=== PATIENT | male | born 1990 | race Caucasian/White ===

== ENCOUNTER 2018-11-15 11:55 | Emergency (ER) | payer BC ==
[2018-11-15] MEDS ORDERED: Ondansetron 4 MG/2 ML SDV IVPUSH ONE ×2 (12:12→14:08)
[2018-11-15] MEDS ORDERED: Ketorolac 30 MG/ML SDV IVPUSH ONE (12:12)
[2018-11-15] MEDS ORDERED: Sodium Chloride 0.9% 1,000 ML IV SCH ×3 (12:15→15:30)
[2018-11-15] MEDS ORDERED: Morphine 4 MG/ML Syringe IVPUSH ONE (12:26)
[2018-11-15] MEDS ORDERED: Morphine 2 MG/ML Syringe ONE (12:32)
[2018-11-15] MEDS ORDERED: Morphine 2 MG/ML Syringe IVPUSH STA (12:34)
--- NOTE | 2018-11-15 12:39 | EDM.PDOC ---
<Jeanine Cedillo - Last Filed: 11/15/18 16:19> ED HPI GENERAL MEDICAL PROBLEM - General Chief Complaint: Flank Pain Stated Complaint: FLANK PAIN Time Seen by Provider: 11/15/18 12:11 Source of Information: Reports: Patient History Limitations: Reports: No Limitations - History of Present Illness INITIAL COMMENTS - FREE TEXT/NARRATIVE: 28 y/o male presents to ER with cc right flank pain that radiates around into his stomach. He states he feels nauseated and wants to vomited. He reports the pain started 20 minutes prior to arrival. He reports he was watching TV when he felt a stabbing pain near is right kidney. He attempted to reposition and get comfortable but the pain is only getting worse. He denies fever, reports having new onset of chills. He states he is normally healthy and doesn' t take any medications. His PCP is T[facility] Justice. He is accompanied by his girlfriend. Onset: Today, Sudden Onset Date: 11/15/18 Onset Time: 11:30 Duration: Getting Worse Location: Reports: Abdomen, Back (right cva area radiating into stomach) Quality: Reports: Stabbing Severity: Moderate Improves with: Reports: None Worsens with: Reports: None Associated Symptoms: Reports: Diaphoresis, Fever/Chills, Nausea/Vomiting Right Flank Pain Score (Numeric/FACES): 9 - Related Data Allergies Allergy/AdvReac Type Severity Reaction Status Date / Time No Known Allergies Allergy Verified 11/15/18 12:04 Home Meds: Home Meds Ondansetron [Zofran ODT] 4 mg PO Q6H PRN #15 tab.dis 11/15/18 [Rx] Tamsulosin [Tamsulosin 24 Hr] 0.4 mg PO QPM 15 Days #15 cap.er 11/15/18 [Rx] oxyCODONE HCl/Acetaminophen [Percocet 7.5-325 mg Tablet] 1 each PO Q6HR PRN 5 Days #20 tablet 11/15/18 [Rx] Past Medical History - Past Health History Medical/Surgical History: Denies Medical/Surgical History Social & Family History - Tobacco Use Smoking Status *Q: Never Smoker Second Hand Smoke Exposure: No - Caffeine Use Caffeine Use: Reports: Coffee - Recreational Drug Use Recreational Drug Use: No ED ROS GENERAL - Review of Systems Review Of Systems: See Below Constitutional: Reports: Chills. Denies: Fever HEENT: Reports: No Symptoms Respiratory: Reports: No Symptoms Cardiovascular: Reports: No Symptoms Endocrine: Reports: No Symptoms GI/Abdominal: Reports: Abdominal Pain. Denies: Constipation, Diarrhea : Reports: Flank Pain (right ) Musculoskeletal: Reports: Back Pain Skin: Reports: No Symptoms Neurological: Reports: No Symptoms Psychiatric: Reports: No Symptoms Hematologic/Lymphatic: Reports: No Symptoms Immunologic: Reports: No Symptoms ED EXAM, GI/ABD - Physical Exam Exam: See Below Exam Limited By: No Limitations General Appearance: Alert, WD/WN, No Apparent Distress, Other (Appears uncomfortable, he has the shakes and is in a position. ) Neck: Normal Inspection, Supple, Non-Tender, Full Range of Motion Respiratory/Chest: No Respiratory Distress, Lungs Clear, Normal Breath Sounds, No Accessory Muscle Use, Chest Non-Tender Cardiovascular: Normal Peripheral Pulses, Regular Rate, Rhythm, No Edema, No Gallop, No JVD, No Murmur, No Rub GI/Abdominal Exam: Normal Bowel Sounds, Soft, Non-Tender, No Organomegaly, No Distention, No Abnormal Bruit, No Mass, Pelvis Stable Back Exam: Full Range of Motion, CVA Tenderness (R) Extremities: Normal Inspection, Normal Range of Motion, Non-Tender, No Pedal Edema, Normal Capillary Refill Neurological: Alert, Oriented, Normal Cognition, Normal Gait, Normal Reflexes, No Motor/Sensory Deficits Psychiatric: Normal Affect Skin Exam: Warm, Dry, Intact, Normal Color, No Rash Lymphatic: No Adenopathy Course - Vital Signs Last Recorded V/S: Last Vital Signs Temp 98.3 F 11/15/18 13:26 Pulse 70 11/15/18 13:26 Resp 16 11/15/18 13:26 BP 99/85 11/15/18 13:26 Pulse Ox 100 11/15/18 13:26 - Orders/Labs/Meds Labs: Laboratory Tests 11/15/18 11/15/18 11/15/18 Range/Units 12:19 12:30 12:30 WBC 7.12 (4.23-9.07) K/mm3 RBC 5.06 (4.63-6.08) M/mm3 Hgb 15.7 (13.7-17.5) gm/L Hct 45.2 (40.1-51.0) % MCV 89.3 (79.0-92.2) fl MCH 31.0 (25.7-32.2) pg MCHC 34.7 (32.2-35.5) g/dl RDW Std Deviation 40.1 (35.1-43.9) fL Plt Count 249 (163-337) K/mm3 MPV 10.1 (9.4-12.3) fl Neut % (Auto) 43.1 (34.0-67.9) % Lymph % (Auto) 36.1 (21.8-53.1) % Miller % (Auto) 7.9 (5.3-12.2) % Eos % (Auto) 11.8 H (0.8-7.0) Baso % (Auto) 1.0 (0.1-1.2) % Neut # (Auto) 3.07 (1.78-5.38) K/mm3 Lymph # (Auto) 2.57 (1.32-3.57) K/mm3 Miller # (Auto) 0.56 (0.30-0.82) K/mm3 Eos # (Auto) 0.84 H (0.04-0.54) K/mm3 Baso # (Auto) 0.07 (0.01-0.08) K/mm3 Sodium 142 (136-145) mEq/L Potassium 3.4 L (3.5-5.1) mEq/L Chloride 105 (98-107) mEq/L Carbon Dioxide 23 (21-32) mEq/L Anion Gap 17.4 H (5-15) BUN 16 (7-18) mg/dL Creatinine 1.2 (0.7-1.3) mg/dL Est Cr Clr Drug Dosing 96.74 mL/min Estimated GFR (MDRD) > 60 (>60) mL/min BUN/Creatinine Ratio 13.3 L (14-18) Glucose 126 H (74-106) mg/dL Calcium 9.3 (8.5-10.1) mg/dL Total Bilirubin 0.5 (0.2-1.0) mg/dL AST 15 (15-37) U/L ALT 28 (16-63) U/L Alkaline Phosphatase 71 (46-116) U/L Total Protein 7.4 (6.4-8.2) g/dl Albumin 4.1 (3.4-5.0) g/dl Globulin 3.3 gm/dL Albumin/Globulin Ratio 1.2 (1-2) Urine Color Yellow (Yellow) Urine Appearance Slt cloudy H (Clear) Urine pH 6.0 (5.0-8.0) Ur Specific Farnam > or = 1.030 (1.005-1.030) Urine Protein Trace H (Negative) Urine Glucose (UA) Negative (Negative) Urine Ketones Negative (Negative) Urine Occult Blood 3+ H (Negative) Urine Nitrite Negative (Negative) Urine Bilirubin Negative (Negative) Urine Urobilinogen 0.2 (0.2-1.0) Ur Leukocyte Esterase Negative (Negative) Urine RBC 50-75 H (0-5) /hpf Urine WBC 0-5 (0-5) /hpf Ur Epithelial Cells 0-5 (0-5) /hpf Urine Bacteria Few (FEW) /hpf Urine Mucus Moderate H (FEW) /hpf Meds: Medications Discontinued Medications Generic Name Dose Route Start Last Admin Trade Name Manasq PRN Reason Stop Dose Admin Sodium Chloride 1,000 mls @ 999 mls/hr 11/15/18 12:15 11/15/18 12:39 Normal Saline IV 999 mls/hr ASDIRECTED TRESSA Administration Sodium Chloride 1,000 mls @ 999 mls/hr 11/15/18 14:15 11/15/18 14:24 Normal Saline IV 999 mls/hr ASDIRECTED TRESSA Administration Sodium Chloride 1,000 mls @ 999 mls/hr 11/15/18 15:30 11/15/18 15:25 Normal Saline IV 999 mls/hr ASDIRECTED TRESSA Administration Ketorolac Tromethamine 30 mg 11/15/18 12:12 11/15/18 12:31 Toradol IVPUSH 11/15/18 12:13 30 mg ONETIME ONE Administration Morphine Sulfate 4 mg 11/15/18 12:26 11/15/18 13:23 Morphine IVPUSH 11/15/18 12:27 Not Given ONETIME ONE Morphine Sulfate Confirm 11/15/18 12:32 11/15/18 12:40 Morphine Administered 11/15/18 12:33 Not Given Dose 4 mg .ROUTE .STK-MED ONE Morphine Sulfate 4 mg 11/15/18 12:34 11/15/18 12:40 Morphine IVPUSH 11/15/18 12:35 Not Given ONETIME STA Morphine Sulfate 4 mg 11/15/18 12:34 11/15/18 12:40 Morphine Sulfate IV 11/15/18 12:35 Not Given ONETIME ONE Morphine Sulfate 2 mg 11/15/18 12:45 11/15/18 12:35 Morphine IV 11/15/18 12:46 2 mg ONETIME ONE Administration Morphine Sulfate 2 mg 11/15/18 12:45 11/15/18 12:35 Morphine IV 11/15/18 12:46 2 mg ONETIME ONE Administration Morphine Sulfate 4 mg 11/15/18 14:09 11/15/18 14:28 Morphine Sulfate IV 11/15/18 14:10 4 mg ONETIME ONE Administration Ondansetron HCl 4 mg 11/15/18 12:12 11/15/18 12:30 Zofran IVPUSH 11/15/18 12:13 4 mg ONETIME ONE Administration Ondansetron HCl 4 mg 11/15/18 14:08 11/15/18 14:25 Zofran IVPUSH 11/15/18 14:09 4 mg ONETIME ONE Administration - Re-Assessments/Exams Free Text/Narrative Re-Assessment/Exam: 11/15/18 13:35 WBC 7.5 RBC 5.06 H7H 15.7/45.2 Na+ 142 K+ 3.4 chl 105 Bun 16 creatine 1.2 glucose 126 I feels this is stress induced. Urinalysis + 3 blood, RBC 50-70 - nitrates - leukocytes. His urinalysis is consistent with kidney stones. CT abdomen reveals Obstructing 6.5 mm stone within the proximal right ureter. Multiple [id number] calculi within both kidneys. No additional abnormality is appreciated on noncontrast CT study of the abdomen and pelvis performed as a ureteral stone protocol. 11/15/18 1400 Patient is resting comfortably after receiving IVF, Zofran and Morphine. 11/15/18 14:[address] Bills regarding case. Since the patient is not having retractible , nausea, pain and no signs of infection he can go home with Flomax and Percocet. He is to follow up next week with urologist. If his condition changes, Dr. Bills will be happy to see him sooner. 11/15/18 14:48 28 y/o male presented to ER with cc sudden onset right flank pain. His Ct revealed a 6.5 mm obstructing sone within the proximal right ureter Multiple non obstructing calculi within both kidneys. He received IVF, Zofran and Morphine and his condition improved. I discussed the case with Dr. Bills and since the patient is not have intractable pain, nausea or signs of infection, I will discharge home with Flomax and Percocet. I will encourage him to increase fluid intake. Instructed to follow up with Dr. Bills or his associate next week in clinic. Instructed to return to the ER for any new or acute worsening symptoms. Patient verbalized understanding and is comfortable with plan for discharge. Patient is stable at time of discharge. Departure - Departure Time of Disposition: 16:19 Disposition: Home, Self-Care 01 Condition: Good Clinical Impression: Kidney stone on right side - Discharge Information *PRESCRIPTION DRUG MONITORING PROGRAM REVIEWED*: Not Applicable *COPY OF PRESCRIPTION DRUG MONITORING REPORT IN PATIENT COLLEEN: Not Applicable Prescriptions: oxyCODONE HCl/Acetaminophen [Percocet 7.5-325 mg Tablet] 1 each PO Q6HR PRN 5 Days #20 tablet PRN Reason: flank pain Ondansetron [Zofran ODT] 4 mg PO Q6H PRN #15 tab.dis PRN Reason: Nausea Tamsulosin [Tamsulosin 24 Hr] 0.4 mg PO QPM 15 Days #15 cap.er Instructions: Low-Purine Eating Plan, Kidney Stones, [id number], Flank Pain, Adult, [id number] Referrals: PCP,None [Ordering Only Provider] - Sarmad Bills MD [Ordering Only Provider] - Forms: ED Department Discharge Additional Instructions: You have been diagnosis with a kidney stone. Stop drinking energy drinks, increase water intake. Low salt diet. Follow up with Dr. Bills or his associate next week. You have been given a prescription for Percocet, do not take this medication and drink, drive or operate machinery. Take Zofran as prescribed for nausea. Take Flomax as prescribed at night. Return to the ER for any new or acute worsening symptoms. <Elder Rose - Last Filed: 11/15/18 20:03> Course - Re-Assessments/Exams Free Text/Narrative Re-Assessment/Exam: 11/15/18 20:02 Hx and exam done by K Bayes, GL[employer]ER. I have also discussed sx and findings, plan of treatment with patient and spouse. I agree with hx and exam as documented.
[2018-11-15] MEDS ORDERED: Morphine 2 MG/ML Syringe IV ONE ×2 (12:45)
[2018-11-15 13:27] VITALS: BP 99/85
--- NOTE | 2018-11-15 13:35 | CT ---
CT abdomen and pelvis Technique: Multiple axial sections were obtained from above the dome of the diaphragm inferiorly through the pubic symphysis. Intravenous and oral contrast was not utilized. Study has been performed as a ureteral stone protocol. Findings: Right-sided hydronephrosis is seen. This is caused by proximal right obstructing ureteral stone measuring 6.5 mm. This occurs slightly proximal to the level of the iliac crests. Multiple small nonobstructing calculi are seen within both kidneys measuring less than 5 mm. No additional ureteral stone is seen. Other findings: Small portion of the visualized lung bases are clear. Noncontrast appearance of the liver and spleen appears within normal limits. Gallbladder contains no calcified gallstones. Adrenal glands show no nodule. Pancreas appears within normal limits. Aorta shows no aneurysm. No retroperitoneal adenopathy or mesenteric abnormalities are seen. No pelvic mass or adenopathy is seen. No free fluid or inflammatory change is seen. Appendix is not definitely visualized. Bone window settings were reviewed which appear within normal limits for the patient's age. Impression: 1. Obstructing 6.5 mm stone within the proximal right ureter. Multiple nonobstructing calculi within both kidneys. 2. No additional abnormality is appreciated on noncontrast CT study of the abdomen and pelvis performed as a ureteral stone protocol. Diagnostic code #3
== END 2018-11-15 16:38 | disposition home or self-care (01) ==
LOC: JD.ED 11:55
DX: N13.2 Hydronephrosis with renal and ureteral calculous obstruction (principal)
CPT/HCPCS: 36415; 74176; 80053; 81001; 85025; 96361; 96374; 96375; 96376; 99284; J1885; J2270; J2405; J7040

== ENCOUNTER 2018-11-27 10:18 | Emergency (ER) | payer BC ==
[2018-11-27 10:38] VITALS: BP 98/75
[2018-11-27] MEDS ORDERED: Magnesium Citrate Solution 296 ML Bottle PO ONE (10:46)
[2018-11-27] MEDS ORDERED: Tamsulosin 0.4 MG Cap.ER PO ONE (11:55)
[2018-11-27] MEDS ORDERED: Sodium Chloride 0.9% 1,000 ML IV SCH ×2 (12:15→12:30)
[2018-11-27] MEDS ORDERED: HYDROmorphone 0.5 MG/0.5 ML Syringe IVPUSH ONE ×2 (12:16→13:21)
[2018-11-27] MEDS ORDERED: cefTRIAXone 2 GM Vial IV ONE (12:16)
[2018-11-27] MEDS ORDERED: Ondansetron 4 MG/2 ML SDV IVPUSH ONE (12:16)
[2018-11-27] MEDS ORDERED: Ketorolac 30 MG/ML SDV IVPUSH ONE (12:17)
[2018-11-27] MEDS ORDERED: cefTRIAXone 2 GM in Sodium Chloride 0.9% 100 ML IV SCH (12:30)
--- NOTE | 2018-11-27 12:39 | EDM.PDOC ---
<RaymundoEnrique A - Last Filed: 11/27/18 16:58> ED HPI GENERAL MEDICAL PROBLEM - General Chief Complaint: Genitourinary Problem Stated Complaint: POST SURGERY PAIN FOR KIDNEY STONES Time Seen by Provider: 11/27/18 10:28 - Related Data Allergies Allergy/AdvReac Type Severity Reaction Status Date / Time No Known Allergies Allergy Verified 11/15/18 12:04 Home Meds: Home Meds Tamsulosin [Tamsulosin 24 Hr] 0.4 mg PO QPM 15 Days #15 cap.er 11/15/18 [Rx] oxyCODONE HCl/Acetaminophen [Percocet 7.5-325 mg Tablet] 1 each PO Q6HR PRN 5 Days #20 tablet 11/15/18 [Rx] Sulfamethoxazole/Trimethoprim [Bactrim Ds Tablet] 1 each PO BID 7 Days #14 tablet 11/27/18 [Rx] Tamsulosin HCl [Flomax] 0.4 mg PO DAILY 15 Days #15 cap.er.24h 11/27/18 [Rx] Course - Vital Signs Last Recorded V/S: Last Vital Signs Temp 99.1 F 11/27/18 10:30 Pulse 87 11/27/18 10:30 Resp 18 11/27/18 10:30 BP 98/75 11/27/18 10:30 Pulse Ox 98 11/27/18 10:30 - Orders/Labs/Meds Orders: Active Orders 24 hr Category Date Time Status Enema [RC] ASDIRECTED Care 11/27/18 10:46 Active KUB [Abdomen 1V Flat] [CR] Stat Exams 11/27/18 10:45 Taken Labs: Laboratory Tests 11/27/18 Range/Units 11:20 Urine Color Yellow (Yellow) Urine Appearance Slt cloudy H (Clear) Urine pH 6.0 (5.0-8.0) Ur Specific Coleman 1.020 (1.005-1.030) Urine Protein 2+ H (Negative) Urine Glucose (UA) Negative (Negative) Urine Ketones Negative (Negative) Urine Occult Blood 3+ H (Negative) Urine Nitrite Negative (Negative) Urine Bilirubin Negative (Negative) Urine Urobilinogen 0.2 (0.2-1.0) Ur Leukocyte Esterase 1+ H (Negative) Urine RBC 50-75 H (0-5) /hpf Urine WBC 5-10 H (0-5) /hpf Ur Epithelial Cells 0-5 (0-5) /hpf Ur Renal Epithelial Cell 0-5 (0-5) /hpf Urine Bacteria Many H (FEW) /hpf Urine Mucus Many H (FEW) /hpf Meds: Medications Discontinued Medications Generic Name Dose Route Start Last Admin Trade Name Freq PRN Reason Stop Dose Admin Ceftriaxone Sodium 2 gm 11/27/18 12:16 Rocephin IV 11/27/18 12:17 ONETIME ONE Hydromorphone HCl 1 mg 11/27/18 12:16 11/27/18 12:32 Dilaudid IVPUSH 11/27/18 12:17 1 mg ONETIME ONE Administration Hydromorphone HCl 1 mg 11/27/18 13:21 11/27/18 13:31 Dilaudid IVPUSH 11/27/18 13:22 1 mg ONETIME ONE Administration Sodium Chloride 1,000 mls @ 999 mls/hr 11/27/18 12:15 11/27/18 12:32 Normal Saline IV 999 mls/hr ASDIRECTED TRESSA Administration Ceftriaxone Sodium 2 gm/ 100 mls @ 200 mls/hr 11/27/18 12:30 11/27/18 12:47 Sodium Chloride IV 200 mls/hr Q24H TRESSA Administration Sodium Chloride 1,000 mls @ 999 mls/hr 11/27/18 12:30 11/27/18 13:58 Normal Saline IV 999 mls/hr ASDIRECTED TRESSA Administration Ketorolac Tromethamine 30 mg 11/27/18 12:17 11/27/18 12:38 Toradol IVPUSH 11/27/18 12:18 30 mg ONETIME ONE Administration Magnesium Citrate 296 ml 11/27/18 10:46 11/27/18 11:14 Citrate Of Magnesia PO 11/27/18 10:47 148 ml ONETIME ONE Administration Ondansetron HCl 4 mg 11/27/18 12:16 11/27/18 12:42 Zofran IVPUSH 11/27/18 12:17 4 mg ONETIME ONE Administration Phenazopyridine HCl 95 mg 11/27/18 19:00 Urinary Pain Relief PO TIDPC TRESSA Phenazopyridine HCl 95 mg 11/27/18 13:46 11/27/18 13:49 Urinary Pain Relief PO 11/27/18 13:47 95 mg ONETIME STA Administration Tamsulosin HCl 0.4 mg 11/27/18 11:55 11/27/18 12:04 Flomax PO 11/27/18 11:56 0.4 mg ONETIME ONE Administration - Re-Assessments/Exams Free Text/Narrative Re-Assessment/Exam: 11/27/18 16:58 Case reviewed, and I agree with the evaluation and plan of care as outlined by Jeanine Cedillo NP. Departure - Departure Disposition: Home, Self-Care 01 Clinical Impression: UTI, Urinary tract infectious disease - Discharge Information Prescriptions: Sulfamethoxazole/Trimethoprim [Bactrim Ds Tablet] 1 each PO BID 7 Days #14 tablet Tamsulosin HCl [Flomax] 0.4 mg PO DAILY 15 Days #15 cap.er.24h Instructions: Urinary Tract Infection, Adult, [id number] Referrals: Jose Baron PA [Primary Care Provider] - Forms: ED Department Discharge - My Orders Last 24 Hours: My Active Orders 11/27/18 10:45 KUB [Abdomen 1V Flat] [CR] Stat 11/27/18 10:46 Enema [RC] ASDIRECTED - Assessment/Plan Last 24 Hours: My Active Orders 11/27/18 10:45 KUB [Abdomen 1V Flat] [CR] Stat 11/27/18 10:46 Enema [RC] ASDIRECTED <Jeanine Cedillo - Last Filed: 11/27/18 20:40> ED HPI GENERAL MEDICAL PROBLEM - General Source of Information: Reports: Patient History Limitations: Reports: No Limitations - History of Present Illness INITIAL COMMENTS - FREE TEXT/NARRATIVE: 28 y/o male presents to ER with cc pelvic pressure/pain and dysuria. He had a ureter stent placed 11/24/18 by in [place]. He developed symptoms yesterday. He denies any fever, chills, nausea, vomiting or lower back pain. He also reports she's not had a bowel movement in 12 days. He has been taking Percocet for the pain but it is not relieving his symptoms. He appears to be in moderate pain, he is on his knees on the floor and not wanting to move due to the pain. Onset Date: 11/26/18 Onset Time: 12:00 Duration: Getting Worse Location: Reports: Abdomen Quality: Reports: Ache, Pressure, Throbbing Severity: Moderate Improves with: Reports: None Worsens with: Reports: None Associated Symptoms: Reports: Loss of Appetite, Nausea/Vomiting, Other (Pelvic pressure and dysuria). Denies: Diaphoresis, Fever/Chills Bladder Pain Score (Numeric/FACES): 10 Past Medical History - Past Health History Medical/Surgical History: Denies Medical/Surgical History - Past Surgical History Male Surgical History: Reports: Renal Calculus Social & Family History - Tobacco Use Smoking Status *Q: Never Smoker Second Hand Smoke Exposure: No - Caffeine Use Caffeine Use: Reports: Soda - Recreational Drug Use Recreational Drug Use: No ED ROS GENERAL - Review of Systems Review Of Systems: See Below Constitutional: Denies: Fever, Chills HEENT: Reports: No Symptoms, Vertigo Respiratory: Reports: Cough Endocrine: Reports: No Symptoms GI/Abdominal: Reports: Constipation. Denies: Abdominal Pain : Reports: Dysuria, Urgency, Other (pelvic pressure and spasms). Denies: Flank Pain Musculoskeletal: Denies: Back Pain Skin: Reports: No Symptoms Neurological: Reports: No Symptoms Psychiatric: Reports: No Symptoms Hematologic/Lymphatic: Reports: No Symptoms Immunologic: Reports: No Symptoms ED EXAM, GI/ABD - Physical Exam Exam: See Below Exam Limited By: No Limitations General Appearance: Alert, WD/WN, Mild Distress (in moderate pain) Respiratory/Chest: No Respiratory Distress, Lungs Clear, Normal Breath Sounds, No Accessory Muscle Use, Chest Non-Tender Cardiovascular: Normal Peripheral Pulses, Regular Rate, Rhythm, No Edema, No Gallop, No JVD, No Murmur, No Rub GI/Abdominal Exam: Normal Bowel Sounds, Soft, No Organomegaly, No Distention, No Abnormal Bruit, No Mass, Pelvis Stable Back Exam: Normal Inspection, Full Range of Motion Extremities: Normal Inspection, Normal Range of Motion, Non-Tender, No Pedal Edema, Normal Capillary Refill Neurological: Alert, Oriented, CN II-XII Intact, Normal Cognition, Normal Gait Psychiatric: Normal Affect, Normal Mood Skin Exam: Warm, Dry, Intact, Normal Color, No Rash Lymphatic: No Adenopathy Course - Re-Assessments/Exams Free Text/Narrative Re-Assessment/Exam: 11/27/18 12:45 Urinalysis is consistant with UTI + 2 protien, + 3 occult blood, + 1 leukocyte esterase, RBC 50-75, WBC 5-10 Bacteria and mucus many. I will start IVF, medicate with Zofrand, Dilaudid, Toradol and Rocepin 2 gm IVPB. His KUB is consistent with constipation, I will medicate with Magnesium Citrate. 11/27/18 14:03 Patient reports feeling better after receiving fluids Toradol and Dilaudid. He did have a large bowel movement. Patient is eating no complaints of nausea. I will discharge home with Bactrim for outpatient therapy. I did instruct the patient to stop taking his Keflex. Patient reports he has enough pain medicine at home. I will discharge home with Flomax to help with this urinary retention. I did instruct the patient to follow-up with his urologist as scheduled next week. Instructed the patient to return to the [facility] for any new or acutely worsening symptoms. Patient verbalized understanding and is controlled plan for discharge. Patient is stable at time of discharge. Departure - Departure Time of Disposition: 13:30 Condition: Good - Discharge Information *PRESCRIPTION DRUG MONITORING PROGRAM REVIEWED*: Yes *COPY OF PRESCRIPTION DRUG MONITORING REPORT IN PATIENT COLLEEN: Yes
[2018-11-27] MEDS ORDERED: Phenazopyridine 95 MG Tab PO STA (13:46)
[2018-11-27] MEDS ORDERED: Phenazopyridine 95 MG Tab PO SCH (19:00)
--- NOTE | 2018-11-28 07:23 | CR ---
Abdomen: Supine view of the abdomen was obtained. Comparison: Prior noncontrast CT exam performed as a renal stone protocol dated 11/15/18. Right ureteral stent is seen. This has been placed in the interim from prior study. Proximal end lies within the expected region of the renal pelvis and distal end lies in the expected region of the bladder. No definite abnormal calcifications are seen along the course of the stent. Calcifications are seen within the left side of the pelvis most likely due to phleboliths. Bowel gas pattern is normal. Bony structures are unremarkable. Impression: 1. Right ureteral stent as described above. Position of stent appears to be normal. 2. Nothing acute is seen. No abnormal amounts of stool are seen. Diagnostic code #2
== END 2018-11-27 15:11 | disposition home or self-care (01) ==
LOC: JD.ED 10:18
DX: N39.0 Urinary tract infection, site not specified (principal)
CPT/HCPCS: 74018; 81001; 96361; 96365; 96375; 96376; 99283; A9270; J0696; J1170; J1885; J2405; J7030; J7040; 99284